=== PATIENT | female | born 1975 | race Two or more races ===

== ENCOUNTER 2020-06-20 18:08 | Emergency (ER) | payer MEDICAID, OTHER ==
[~2020-06-20] VITALS: Ht 154.9 cm; Wt 56.7 kg
[2020-06-20 18:19] VITALS: BP 183/101
[2020-06-20] MEDS ORDERED: LACTULOSE 20Gm/30ML SOLN PO ONE (19:30)
== END 2020-06-20 20:21 | disposition home or self-care (01) ==
LOC: ER 18:08
DX: K59.00 Constipation, unspecified (principal); I10 Essential (primary) hypertension
CPT/HCPCS: 74018